=== PATIENT | male | born 1990 | race Caucasian/White ===

== ENCOUNTER 2023-08-19 09:07 | Emergency (ER) | payer BC, OTHER ==
[2023-08-19] MEDS ORDERED: Ketorolac Tromethamine 30 MG (1 mL) VIAL ONE (09:31)
[2023-08-19] MEDS ORDERED: Orphenadrine Citrate 60 MG/2 ML VIAL ONE (09:31)
[2023-08-19] MEDS ORDERED: Ondansetron ODT 4 MG TAB ONE (09:48)
== END 2023-08-19 09:45 | disposition home or self-care (01) ==
LOC: ERS 09:07
DX: S16.1XXA Strain of muscle, fascia and tendon at neck level, initial encounter (principal); M54.6 Pain in thoracic spine; Z55.6 Problems related to health literacy; V43.92XA Unspecified car occupant injured in collision with other type car in traffic accident, initial encounter
CPT/HCPCS: 96372; 99282; J1885; J2360; Q0162

== ENCOUNTER 2023-08-26 11:17 | Outpatient (CLI) | payer OTHER | END 2023-08-26 11:18 | disposition home or self-care (01) | LOC: SCSRAD 11:17 | PROVIDERS: ATTEND Nurse Practitioner Family | DX: S16.1XXA Strain of muscle, fascia and tendon at neck level, initial encounter (principal); S29.012A Strain of muscle and tendon of back wall of thorax, initial encounter | CPT/HCPCS: 72040 ==